=== PATIENT | female | born 1980 | race Caucasian/White ===

== ENCOUNTER 2017-04-08 07:12 | Day surgery (SDC) | payer BC ==
[2017-04-08] MEDS ORDERED: Glycopyrrolate 0.2 MG/ML 2 ML SDV IVPUSH ONE (08:00)
[2017-04-08] MEDS ORDERED: MVI, Adult with Vitamin K 10 ML, Thiamine 200 MG, Chromium/Copper/Mang/Selen/Zn 1 ML in... IV ONE ×4 (08:00)
[2017-04-08] MEDS ORDERED: Lactated Ringers 1,000 ML IV ONE (08:00)
[2017-04-08] MEDS ORDERED: Cyanocobalamin (Vitamin B12) 1,000 MCG/ML SDV IM ONE (08:00)
[2017-04-08] MEDS ORDERED: Midazolam 1 MG/ML 2 ML SDV ONE (08:41)
[2017-04-08] MEDS ORDERED: Propofol 200 MG/20 ML SDV ONE (08:41)
[2017-04-08] MEDS ORDERED: fentaNYL 100 MCG/2 ML SDV ONE (08:41)
[2017-04-08 11:07] VITALS: BP 134/81
--- NOTE | 2017-04-08 15:39 | OR ---
DATE OF PROCEDURE: 04/08/2017 PREOPERATIVE DIAGNOSES: Marked heartburn and reflux with associated weight regain status post laparoscopic adjustable gastric band placement. POSTOPERATIVE DIAGNOSES: 1. Marked esophageal dilation with retained liquid and solid food above laparoscopic adjustable gastric band. 2. Mild antral gastritis. OPERATIVE PROCEDURE: Esophagogastroduodenoscopy with antral biopsies for CLOtest. ANESTHESIA: IV sedation. INDICATION FOR PROCEDURE: This is a 36-year-old status post laparoscopic adjustable gastric band placement in 2008. She has, since that time, had progressive problems with some dysphagia as well as heartburn and occasional reflux. She has had episodes of some aspiration of gastric contents when lying flat, this is despite the banding, and unable to completely empty at this time. The plan is to proceed with an upper GI endoscopy to evaluate the anatomy related to the esophagus and EG junction area with relation to the band. Potential risks of the procedure including bleeding and perforation, aspiration of esophageal contents were reviewed, and the patient wishes to proceed. DETAILS OF PROCEDURE: The patient was taken to the operating room and placed in a left lateral decubitus position. IV sedation was administered, after which the upper GI endoscope was passed orally through the length of the esophagus, then the stomach with retroflexion view of the fundus, and thereafter through the pyloric channel and into the junction of the third and fourth portions of the duodenum. Findings included normal hypopharynx, larynx, and upper esophageal sphincter. Within the esophageal body, there was a marked dilation, this was especially found in the last third of the esophagus with this being strikingly dilated. This had some retained bilious liquid as well as some scattered solid food within it despite the patient having been n.p.o. for 9 hours. With this, the outlet through the banded area was wide open, i.e. there was no mechanical obstruction. The remainder of the stomach showed the band to be in appropriate position. There was some mild redness in the pre-pyloric area. Otherwise, the pyloric channel and duodenum were unremarkable. At this point, biopsies were obtained from the antrum and sent for CLOtest to establish the patient's H. pylori status. The scope was then withdrawn. The procedure was then concluded. The patient was taken to the recovery room in a satisfactory condition. The patient would appear to be a good candidate for conversion of laparoscopic band status to Nita-en-Y gastric bypass. Her insurance carrier will be contacted regarding prior authorization. Armand Jaramillo MD /[id number]
== END 2017-04-08 11:08 | disposition home or self-care (01) ==
LOC: JP.SDS 07:12
PROVIDERS: ATTEND Surgery
DX: K29.50 Unspecified chronic gastritis without bleeding (principal); K22.8 Other specified diseases of esophagus; E11.9 Type 2 diabetes mellitus without complications; E66.9 Obesity, unspecified; F41.9 Anxiety disorder, unspecified; F32.9 Major depressive disorder, single episode, unspecified; Z68.30 Body mass index [BMI] 30.0-30.9, adult; Z98.84 Bariatric surgery status
CPT/HCPCS: 43239; 87081; J2250; J2704; J3010; J3411; J3420; J7120; J3490

== ENCOUNTER 2017-05-28 07:06 | Inpatient (IN) | payer BC ==
[~2017-05-28 07:06] MED LIST: Bupivacaine 0.5%/EPINEPHrine 1:200,000 50 ML MDV ONE; cefOXitin 2 GM Vial ONE
[2017-05-28] MEDS ORDERED: Gabapentin 300 MG Cap PO ONE (07:15)
[2017-05-28] MEDS ORDERED: Celecoxib 200 MG Cap PO ONE (07:15)
[2017-05-28] MEDS ORDERED: Acetaminophen 500 MG Tab PO ONE (07:15)
[2017-05-28] MEDS ORDERED: Scopolamine 1.5 MG Transdermal Patch TRDERM PRN (07:15)
[2017-05-28] MEDS ORDERED: Scopolamine 1.5 MG Transdermal Patch TRDERM SCH (07:45)
[2017-05-28] MEDS ORDERED: Dextrose 5%-Lactated Ringers 1,000 ML IV SCH (08:30)
[2017-05-28] MEDS ORDERED: Propofol 200 MG/20 ML SDV ONE (08:55)
[2017-05-28] MEDS ORDERED: Ondansetron 4 MG/2 ML SDV ONE (08:55)
[2017-05-28] MEDS ORDERED: Neostigmine Methylsulfate 1 MG/ML 5 ML Syringe ONE (08:55)
[2017-05-28] MEDS ORDERED: Glycopyrrolate 0.2 MG/ML 5 ML MDV ONE (08:55)
[2017-05-28] MEDS ORDERED: Rocuronium 50 MG/5 ML Vial ONE (08:55)
[2017-05-28] MEDS ORDERED: Dexamethasone 4 MG/ML SDV ONE (08:55)
[2017-05-28] MEDS ORDERED: Succinylcholine 200 MG/10 ML MDV ONE (08:55)
[2017-05-28] MEDS ORDERED: Non-Formulary Medication 1 Each TOP SCH (09:00)
[2017-05-28] MEDS ORDERED: cefOXitin 2 GM in Sodium Chloride 0.9% 50 ML IV ONE (09:00)
[2017-05-28] MEDS ORDERED: Ropivacaine 60 ML, Dexamethasone 8 MG, EPINEPHrine 0.4 MG, Sodium Chloride 0.9% 17.6 ML NERVRT ONE ×4 (09:15)
[2017-05-28] MEDS ORDERED: Lidocaine 2% 100 MG/5 ML Syringe IVPUSH ONE (09:15)
[2017-05-28] MEDS ORDERED: Ketamine 500 MG/5 ML MDV IV ONE (09:15)
[2017-05-28] MEDS ORDERED: Lactated Ringers 1,000 ML ONE (10:19)
[2017-05-28] MEDS ORDERED: fentaNYL 250 MCG/5 ML SDV ONE (11:15)
[2017-05-28] MEDS ORDERED: Sugammadex Sodium 200 MG/2 ML VIAL ONE (12:16)
[2017-05-28] MEDS ORDERED: Ondansetron 4 MG/2 ML SDV IVPUSH PRN (14:00)
[2017-05-28] MEDS ORDERED: Insulin Aspart 100 Units/ML 3 ML Pen SUBCUT PRN (14:00)
[2017-05-28] MEDS ORDERED: hydrOXYzine HCl 100 MG/2 ML SDV IM PRN (14:00)
[2017-05-28] MEDS ORDERED: Labetalol 20 MG/4 ML Syringe IVPUSH PRN (14:00)
[2017-05-28] MEDS ORDERED: diphenhydrAMINE 50 MG/ML SDV IVPUSH PRN (14:00)
[2017-05-28] MEDS ORDERED: Metoclopramide 10 MG/2 ML SDV IVPUSH PRN (14:00)
[2017-05-28] MEDS: Dextrose 5%-Lactated Ringers 1,000 ML IV SCH ×2 (15:03→21:21)
[2017-05-28] MEDS: Lidocaine 0.4%/D5W 2 GM/500 ML BAG IV SCH (15:03)
[2017-05-28] MEDS: cefOXitin 2 GM in Sodium Chloride 0.9% 50 ML IV SCH ×2 (15:40→20:22)
[2017-05-28] MEDS: Pantoprazole 40 MG Vial IVPUSH SCH (15:40)
[2017-05-28] MEDS: Acetaminophen Soln 650 MG/20.3 ML UD Cup PO SCH ×2 (15:40→21:27)
[2017-05-28] MEDS: MVI, Adult with Vitamin K 10 ML, Thiamine 200 MG, Chromium/Copper/Mang/Selen/Zn 1 ML in... IV SCH ×4 (15:41)
[2017-05-28] MEDS: Heparin Sodium 5,000 Units/ML Vial SUBCUT SCH (17:19)
[2017-05-28] MEDS: Gabapentin 250 MG/5 ML Solution ML 470 ML Bottle PO SCH (20:22)
[2017-05-29] MEDS: Heparin Sodium 5,000 Units/ML Vial SUBCUT SCH ×3 (02:03→17:13)
[2017-05-29] MEDS: Lidocaine 0.4%/D5W 2 GM/500 ML BAG IV SCH (02:03)
[2017-05-29] MEDS ORDERED: Iohexol 647 MG/ML 50 ML SDV PO SCH (03:30)
[2017-05-29] MEDS: cefOXitin 2 GM in Sodium Chloride 0.9% 50 ML IV SCH ×4 (03:45→21:50)
[2017-05-29] MEDS: Acetaminophen Soln 650 MG/20.3 ML UD Cup PO SCH ×4 (03:48→21:49)
[2017-05-29] MEDS ORDERED: Loratadine 10 MG Tab PO PRN (07:55)
[2017-05-29] MEDS ORDERED: Dextrose 5%-Lactated Ringers 1,000 ML IV SCH (08:07)
[2017-05-29] MEDS: Celecoxib 200 MG Cap PO SCH (08:09)
[2017-05-29] MEDS: Citalopram 20 MG Tab PO SCH (08:49)
[2017-05-29] MEDS: Gabapentin 250 MG/5 ML Solution ML 470 ML Bottle PO SCH ×3 (08:49→21:49)
[2017-05-29] MEDS: SCOPOLAMINE PATCH CHECK TOP SCH (08:50)
[2017-05-29] MEDS: metFORMIN 500 MG Tab.ER PO SCH ×3 (08:58→17:13)
[2017-05-29] MEDS ORDERED: Vitamin B Complex Tab PO SCH (09:00)
[2017-05-29] MEDS ORDERED: Multivitamins with Iron Tab.Chew PO SCH (09:00)
--- NOTE | 2017-05-29 09:40 | PN ---
DATE OF SERVICE: 05/29/2017 SUBJECTIVE: Prudence is postop day one. She has been up ambulating. States her pain is controlled. Vital signs have been stable. Oral intake was 390. ZIA drain put out 150 of a light pink serosanguineous drainage. REVIEW OF SYSTEMS: Remainder of review of systems negative for any pertinent positives and negatives. OBJECTIVE: GENERAL: Prudence Olson is a 37-year-old female. VITAL SIGNS: TPR is 98.6, 100, 22, blood pressure 133/84. HEENT: Negative. NECK: Supple. HEART: Regular rate and rhythm. LUNGS: Clear. ABDOMEN: Dressings dry and intact. ZIA drain is intact, draining a light pink serosanguineous drainage. Abdominal binder is on. EXTREMITIES: Without peripheral edema. ASSESSMENT: Laparoscopic removal of laparoscopic gastric band system, laparoscopic gastric bypass surgery, liver biopsy, partial gastrectomy for recurrent morbid obesity, SP laparoscopic gastric band placement, hepatomegaly, segment, stomach, and SP takedown of laparoscopic gastric band. Date of surgery is 05/28/2017. PLAN: 1. Decrease IV to 100 mL per hour. 2. Dressing off, may shower. 3. K-Phos 75 millimoles IV today. 4. Check a BMP, phosphorus, and magnesium in a.m. Communication order to give three med cups at bedside and to drink 1 every 20 minutes or 3 per hour and record at bedside. 5. Metformin 750 mg p.o. t.i.d. restarted. We will evaluate p.r.n. or in a.m. Chica Michaud PA-C /[id number]
[2017-05-29] MEDS: Potassium Phosphates 20 MMOLE in Sodium Chloride 0.9% 250 ML IV SCH ×3 (10:16→15:40)
--- NOTE | 2017-05-29 12:00 | CR ---
Upper GI. Findings: There is a surgical drain left upper quadrant. Air-fluid levels within the small bowel. No gross evidence for contrast leakage.
[2017-05-29] MEDS: Pantoprazole 40 MG Vial IVPUSH SCH (15:26)
[2017-05-29] MEDS: MVI, Adult with Vitamin K 10 ML, Thiamine 200 MG, Chromium/Copper/Mang/Selen/Zn 1 ML in... IV SCH ×4 (15:27)
--- NOTE | 2017-05-29 15:34 | OR ---
DATE OF PROCEDURE: 05/28/2017 PREOPERATIVE DIAGNOSIS: Recurrent morbid obesity, status post laparoscopic adjustable gastric band placement. POSTOPERATIVE DIAGNOSES: 1. Recurrent morbid obesity, status post laparoscopic adjustable gastric band placement. 2. Marked hepatomegaly. 3. Deserosalized segment of stomach, status post takedown of band. PROCEDURES: 1. Laparoscope removal of laparoscopic adjustable gastric band system (34803). 2. Laparoscopic Nita-en-Y gastric bypass with long limb gastroenterostomy (18994). 3. Sebastian-Cut needle liver biopsy (66215). 4. Partial gastrectomy (80958). ANESTHESIA: General. CEMENT SACK BREAKER: Chica Michaud PA-C. INDICATION FOR PROCEDURE: This is a 37-year-old status post previous laparoscopic adjustable gastric band placement, who presents with a significant weight regain status post band placement, along with problems with esophageal dilation and severe reflux symptoms, and the plan is to proceed with a removal of the band and conversion to Nita-en-Y gastric bypass. Potential risks of the procedure including bleeding, infection, leaks from various GI tract closures, problems with bowel obstruction over time, as well as possibility of cardiopulmonary, septic, or hemorrhagic complications leading to were discussed, and the patient wishes to proceed. DETAILS OF PROCEDURE: The patient was taken to the operating room and after general endotracheal anesthesia was induced, was placed in a lithotomy position. The abdomen was then prepped and draped. At 15 cm inferior and 5 cm left of xiphoid process, a transverse incision was made and peritoneal cavity entered under direct vision with an Optiview trocar and inflated to 15 mmHg pressure of CO2. Laparoscope was then reinserted. No underlying trocar insertion site injuries were seen. There was a confluence of omental adhesions beginning around the original trocar site. Initially, the left lateral trocar site was placed, and this was found to provide inadequate view of that area. Given this, 1 additional 12-mm trocar was placed in left lower quadrant and this allowed, under direct vision, lysis of the adhesions between the anterior abdominal wall and omentum. These appeared to be largely incited by the presence of the port tubing, and a portion of the port tubing was excised during the course of that process and delivered from the field. Following this, then bilateral transversus abdominis plane blocks were placed under direct vision from within, visualizing the point where the needle would pass just underneath the peritoneum, and this was in the subcostal area, which would correspond to the transversus abdominis plane. The standard solution was injected bilaterally under direct vision. At this point, after the resection of the port tubing up to the level of the port was accomplished, some additional port tubing was then excised and delivered from the field. The band was then gradually dissected away from the surrounding soft tissues, and in the course of this, a significant amount of the edge of the gastric wall was deserosalized. The band was then divided and delivered through its tract. It was then at the point of the knuckle, allowing removal of the band components without widening the trocar sites at this point. The point where the stomach had been deserosalized was then excised with a single firing of the MARC black load. The fibrous capsule of the band was then removed completely anteriorly and to some extent posteriorly. This then allowed division of the stomach at the level of the band imprint with firings of the MARC black loads. Upon completion of the pouch, both staple lines appeared to be intact. Attention was then taken to the marked hepatomegaly, andTru-Cut needle liver biopsies were obtained from the left lobe of the liver. Minimal bleeding from the biopsy sites was controlled with electrocautery. The omentum was then divided in the midline up to the level of the transverse colon. This allowed identification of the small bowel to the ligament of Treitz. Small bowel was then traced out 200 cm distal to that point, where it was divided transversely with a MARC stapler. Small bowel was then traced out with an additional 150 cm, where the [id number] enteroenterostomy was accomplished with internal firing of the Endo-MARC 60-mm stapler. Common opening was then closed transversely with the same stapler, angles anastomosed, and the mesenteric defect was approximated with some 0 Ethibond stitch, along with fibrin sealant. The divided end of the Nita limb was then from the mesentery, which allowed an antecolic position of the Nita limb up to the level of the divided new gastric pouch without tension. The anvil of a 25 mm EEA stapler was then attached to [place] sump type tube. The latter was brought down through the mouth and taken out through a small opening in the gastric pouch. The divided end of the Nita limb was then opened and the main body of the EEA stapler passed several centimeters in the lumen of the small bowel, brought up the anvil and united with it, thus creating the gastrojejunostomy. Upon removal of the stapler, double donuts of mucosa were noted within it. Small bowel was closed off with a vascular staple line. Gastrojejunostomy was reinforced with 3-0 Vicryl seromuscular stitch, along with fibrin sealant. Leak test was accomplished with injection of 120 mL of air in the gastric pouch while submerged with cefoxitin-containing saline solution. No leaks were identified. Two Damir-Santiago drains were then placed adjacent to the gastrojejunostomy and taken out the subcostal trocar sites. With no further problems noted, trocars were removed and the peritoneal cavity deflated. Incisions were closed with some 4-0 Vicryl skin stitch and drains affixed with the same stitch. The patient was taken to the recovery room in satisfactory condition. Physician psychological assistant, Chica Michaud, played an essential role in assisting in this case, helping to position the patient, retract structures as needed, as well as suturing and cutting sutures when indicated. Her presence improved patient safety and decreased the operative time. Armand Jaramillo MD /[id number]
[2017-05-30] MEDS: Heparin Sodium 5,000 Units/ML Vial SUBCUT SCH ×2 (01:59→09:37)
[2017-05-30] MEDS: Acetaminophen Soln 650 MG/20.3 ML UD Cup PO SCH ×2 (03:10→09:38)
[2017-05-30 07:52] VITALS: BP 153/72
[2017-05-30] MEDS: Celecoxib 200 MG Cap PO SCH (07:53)
[2017-05-30] MEDS: metFORMIN 500 MG Tab.ER PO SCH (07:53)
[2017-05-30] MEDS ORDERED: Cyanocobalamin (Vitamin B12) 1,000 MCG/ML SDV IM ONE (09:00)
[2017-05-30] MEDS: Gabapentin 250 MG/5 ML Solution ML 470 ML Bottle PO SCH (09:35)
[2017-05-30] MEDS: Citalopram 20 MG Tab PO SCH (09:36)
[2017-05-30] MEDS: SCOPOLAMINE PATCH CHECK TOP SCH (09:37)
--- NOTE | 2017-05-31 09:37 | DISCH ---
ADMISSION DIAGNOSES: 1. Status post laparoscopic gastric band, morbid obesity. 2. BMI 57.3. 3. Left lumbar pain. 4. Plantar fasciitis. 5. Polycystic ovary. 6. Anxiety and depression. DISCHARGE DIAGNOSES: 1. Laparoscopic removal of laparoscopic adjustable gastric band system. 2. Laparoscopic Nita-en-Y gastric bypass surgery with long limb gastroenterostomy. 3. Sebastian-Cut needle liver biopsy. 4. Partial gastrectomy for recurrent morbid obesity, status post laparoscopic adjustable gastric band placement, marked hepatomegaly, and deserosalized segment of the stomach, status post takedown of band. Date of surgery 05/28/2017. General anesthesia. Armand Jaramillo MD. HISTORY: Prudence is a 37-year-old female, who had a laparoscopic adjustable band placement, who presented with significant weight regain, status post band placement, along with problems of esophageal dilatation and severe reflux symptoms. After preoperative evaluation and discussion of possible risks and possible complications, she wished to proceed with surgical procedure. HOSPITAL COURSE: Prudence had her surgery on 05/28/2017. She had no operative complications. On postop day #1, she was started on a step-2 gastric bypass diet without cereal. Appropriate home medications were restarted, and on postop day #2, she was able to be discharged to home. Her pain was well-managed. Her activity was good. She received adequate dietary instructions. OBJECTIVE: GENERAL: Prudence Olson is a pleasant 37-year-old female. VITAL SIGNS: Height is 5 feet 7 inches, weight is 366 pounds, TPR is 98.9, 92, 16, blood pressure 153/72. HEENT: Negative. NECK: Supple. HEART: Regular rate and rhythm. LUNGS: Clear. ABDOMEN: Sutures are in place, 4 x 4 over ZIA drain site. Abdominal binder is on. EXTREMITIES: Without peripheral edema. DISPOSITION: Discharged to home. CONDITION: Stable and improving. FOLLOWUP APPOINTMENT: Chica Michaud PA-C, at [place], [place] on 06/04/2017 at 1:00 p.m. HOME MEDICATIONS: 1. Tylenol 650 mg per 20.3 mL cup q.6 hours for 2 weeks. 2. Celebrex 200 mg oral daily, #14. 3. Mag oxide 400 mg p.o. daily, #30. 4. Zofran ODT 4 mg q.6 hours p.r.n. nausea, #30. 5. She is to resume her home medication of Celexa 20 mg p.o. daily. 6. Marilynn 60 mg oral daily. 7. Metformin 750 mg oral 3 times a day with meals. 8. She is to discontinue all vitamins and supplements until after her first postop appointment. OTHER INSTRUCTIONS: Diet after discharge, step-2 gastric bypass diet with no cereal for 2 weeks. Activity as tolerated. No lifting greater than 10 pounds for 2 weeks. Driving: Do not drive for 1 week. Shower/bathing: May shower. Notify provider if any fever, increased pain, swelling, redness, drainage, nausea, or vomiting. Wound incision care, keep the site clean and dry. Wear abdominal binder for 2 weeks and then as tolerated. SPECIAL INSTRUCTION: Use incentive spirometer 10 times every hour while awake.
== END 2017-05-30 11:10 | disposition home or self-care (01) | DRG 403 ==
LOC: JP.SDS 07:06 → JP.SDSSCHI 09:45 → EDSTATUS 09:45 → JP.2SS 12:30
PROVIDERS: ADMIT Surgery; ATTEND Surgery
PROC: 0D164ZA Bypass Stomach to Jejunum, Percutaneous Endoscopic Approach (ICD-10-PCS; principal; 2017-05-28)
PROC: 3E0T3BZ Introduction of Anesthetic Agent into Peripheral Nerves and Plexi, Percutaneous Approach (ICD-10-PCS; 2017-05-28)
PROC: 0FB24ZX Excision of Left Lobe Liver, Percutaneous Endoscopic Approach, Diagnostic (ICD-10-PCS; 2017-05-28)
PROC: 0DB64ZZ Excision of Stomach, Percutaneous Endoscopic Approach (ICD-10-PCS; 2017-05-28)
PROC: 0DP64CZ Removal of Extraluminal Device from Stomach, Percutaneous Endoscopic Approach (ICD-10-PCS; 2017-05-28)
DX: E66.01 Morbid (severe) obesity due to excess calories (principal); Z68.43 Body mass index [BMI] 50.0-59.9, adult; R16.0 Hepatomegaly, not elsewhere classified; E28.2 Polycystic ovarian syndrome; F41.9 Anxiety disorder, unspecified; F32.9 Major depressive disorder, single episode, unspecified; M54.9 Dorsalgia, unspecified; G89.29 Other chronic pain; K95.09 Other complications of gastric band procedure; Z98.84 Bariatric surgery status; R63.5 Abnormal weight gain; M54.5 Low back pain; M72.2 Plantar fascial fibromatosis
CPT/HCPCS: 36415; 74240; 74240-26; 80048; 82962; 83036; 83735; 83880; 84100; 85027; 86850; 86900; 86901; 87493; 88300; 88307; 88313; A9270-GY; C9113; C9399; J0171; J0330; J0694; J1100; J1644; J2001; J2405; J2704; J2710; J2795; J3010; J3411; J3420; J3490; J7030; J7042; J7050; J7120; Q9967